=== PATIENT | female | born 1935 | race Caucasian/White ===

== ENCOUNTER → 2023-12-22 15:16 | Outpatient (REF) | payer MEDICARE, SELFPAY | LOC: RAD 15:16 | PROVIDERS: ATTENDING PHYSICIAN Nurse Practitioner Family; FAMILY PHYSICIAN Family Medicine | DX: M54.50 Low back pain, unspecified (principal); M25.562 Pain in left knee | CPT/HCPCS: 72110; 73564 ==

== ENCOUNTER → 2024-01-24 10:14 | Outpatient (REF) | payer MEDICARE, SELFPAY | LOC: RAD 10:14 | PROVIDERS: ATTENDING PHYSICIAN Nurse Practitioner Family; FAMILY PHYSICIAN Family Medicine | DX: M81.0 Age-related osteoporosis without current pathological fracture (principal) | CPT/HCPCS: 77080 ==

== ENCOUNTER 2024-01-27 15:45 | Emergency (ER) | payer MEDICARE, SELFPAY ==
[2024-01-27 15:48] VITALS: BP 169/86
[2024-01-27 15:49] VITALS: BP 169/86
[2024-01-27 15:52] LABS: Glucose - Point of Care 124 mg/dl (70-99)
[2024-01-27 16:00] VITALS: BP 111/78
[2024-01-27 16:01] VITALS: BMI 26.6
[2024-01-27 16:13] LABS: % Basophils 0.7 % (0-2); % Eosinophils 2.5 % (0-6); % Immature Granulocytes 0.5 % (0-0.5); % Lymphocytes 14.1 % (20.5-51.1); % Monocytes 7.6 % (1.7-9.3); % Neutrophils 74.6 % (42.2-75.2); Absolute Basophils 0.1 10^3/uL (0-0.2); Absolute Eosinophils 0.3 10^3/uL (0-0.7); Absolute Immature Granulocytes 0.1 10^3/uL (0-0.05); Absolute Lymphocytes 1.9 10^3/uL (1.2-3.4); Absolute Neutrophils 9.9 10^3/uL (1.4-6.5); Hematocrit 42.1 % (37.0-47.0); Hemoglobin 14.6 g/dL (12.0-16.0); Mean Corp Hgb Conc. 34.7 g/dL (33.0-37.0); Mean Corpuscular Hgb 31.9 pg (27.0-31.0); Mean Corpuscular Volume 91.9 fL (81.0-99.0); Mean Platelet Volume 9.9 fL (7.4-10.4); Nucleated Red Blood Cells % 0 %; Platelet Count 276 10^3/uL (130-400); Red Blood Cell Count 4.58 10^6/uL (4.20-5.40); Red Cell Dist. Width 13.1 % (11.5-14.5); White Blood Cell Count 13.2 10^3/uL (4.8-10.8)
[2024-01-27 16:33] LABS: Blood Urea Nitrogen 29 mg/dl (7-17); Calcium 10.1 mg/dl (8.4-10.2); Carbon Dioxide 26 mmol/L (22-30); Chloride 100 mmol/L (98-107); Estimated Creatinine Clearance -10 ml/min; Glucose 121 mg/dl (70-99); Sodium 140 mmol/L (135-145); eGFR 54.87
[2024-01-27 17:00] VITALS: BP 140/84
[2024-01-27 18:01] VITALS: BP 127/68
--- NOTE | 2024-01-27 18:32 | ED.GENMED ---
History of Present Illness
General
Chief Complaint: Fainting/Passed Out
Time Seen by Provider: 01/27/24 16:09
History of Present Illness
History of Present Illness:
88Y female presenting for evaluation of a syncopal event and resultant head injury sustained today. 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
Arrives via EMS, laceration to the right lateral knee. She does not take any anticoagulants. She denies any neck pain or extremity paresthesias at this time. Ecchymosis and swelling noted to the right lateral eyebrow associated with a laceration
Past History
Past History
ED Past Medical History: None
ED Past Surgical History: None
Review of Systems
Review of Systems
Allergies reviewed?: Yes
All Other Systems: ROS reviewed and negative except as documented in HPI and ROS
Phy Exam
Physical Exam
Physical Exam:
GEN: Well appearing, NAD, WDWN
HEENT: Ecchymosis and swelling to the right forehead/lateral eyebrow associated with a 2 cm linear laceration within the lateral right eyebrow. Oral mucosa moist, no scleral icterus. No midline cervical spine tenderness
Cardiac: Regular rate
Lung: No respiratory distress, no tachypnea
MSK: No gross deformity or injuries
Skin: Good color, no pallor or jaundice, no rashes
Neuro: AO x3, cranial nerves II through XII grossly intact, moves all extremities freely
Psych: Calm, cooperative
Course
Orders/Labs/Results
Orders:
Orders
01/27/24 16:05
Basic Metabolic Panel Urgent
Complete Blood Count/With Diff Urgent
01/27/24 16:07
CT Head W/o Iv Contrast Urgent
Comment:
Reason For Exam: head injury
01/27/24 16:20
CT Facial Bones W/o Iv Contras Urgent
Comment:
Reason For Exam: fall
01/27/24 18:52
Acetaminophen [Tylenol] 650 mg PO NOW STA
Abnormal Lab Results
01/27/24 01/27/24
15:50 16:05
WBC 13.2 H 10^3/uL
(4.8-10.8)
MCH 31.9 H pg
(27.0-31.0)
Abs Immat Gran (auto) 0.1 H 10^3/uL
(0-0.05)
Absolute Neuts (auto) 9.9 H 10^3/uL
(1.4-6.5)
Absolute Monos (auto) 1.0 H 10^3/uL
(0.1-0.6)
Lymphocytes % 14.1 L %
(20.5-51.1)
BUN 29 H mg/dl
(7-17)
Glucose 121 H mg/dl
(70-99)
POC Glucose 124 H mg/dl
(70-99)
01/27/24 16:05
01/27/24 16:05
Vital Signs
Initial and Last Documented VS:
Initial Vital Signs
Pulse Resp BP
94 16 169/86
01/27/24 15:48 01/27/24 15:48 01/27/24 15:48
Last Documented Vital Signs
Temp Pulse Resp BP Pulse Ox
97.4 F 88 17 127/68 96
01/27/24 15:49 01/27/24 18:45 01/27/24 18:45 01/27/24 18:01 01/27/24 18:45
Procedures
Laceration Closure
Right Eye brow:
Status of Wound: clean
Size of Wound in cm: 2
Description of Wound Edges: sharp
Preparation: cleaned with soap & water
Anesthesia: 1% Lidocaine with epi
Wound exploration: explored to base- no FB
Type of Closure: single layer closure
Skin Closure Material: 5-0 nylon
Number of sutures: 3
MDM/Problems Addressed
MDM/Problems Addressed:
Syncope likely vasovagal due to heat/exposure/exertion. CT head and facial bones normal. Suture closure of wound performed
*Critical Care Note
Total Time (30-74mins, 75-104mins- exclusive of procedures): Not Applicable
ED Attending Note
-
Portions of this chart may have been created with voice recognition software.� Occasional wrong word or��sound alike� substitutions may have occurred due to the inherent limitations of voice recognition software.
Discharge Plan
Departure
Patient Disposition: Home (Routine Discharge)
Date of Disposition: 01/27/24
Time of Disposition: 19:14
Patient with high blood pressure during this ER visit?: No
Discharge Problem:
Syncope, Contusion of face
Instructions: Syncope (Fainting) (DC)
Prescriptions:
No Action
cephalexin 250 mg capsule
250 mg PO Q12H Qty: 13 0RF
Referrals:
Carolina Mckoy, [Family Provider] -
Activity Restrictions/Additional Instructions:
Keep wound dry x 24 hours, then wash daily with soap and water
Ice the hematoma to reduce swelling
Suture removal in 5-7 days
Interventions
Interventions:
*Risk Screen - Suicide Last Done: 01/27/24 15:49
*General Assessment Last Done: 01/27/24 15:49
*Neglect/Abuse Screening Last Done: 01/27/24 15:49
*ED COVID-19 Vaccine History Last Done: 01/27/24 16:01
ED- Cardiac Assessment Last Done: 01/27/24 18:04
ED- Neurological Assessment Last Done: 01/27/24 18:04
Discharge Date and Time
Print Language: CZECH
[2024-01-27] MEDS: TYLENOL 650 MG PO (19:14)
== END 2024-01-27 19:34 | disposition home or self-care (01) ==
LOC: EMR 15:45
PROVIDERS: EMERGENCY PHYSICIAN Emergency Medicine; FAMILY PHYSICIAN Family Medicine
DX: S01.111A Laceration without foreign body of right eyelid and periocular area, initial encounter (principal); W19.XXXA Unspecified fall, initial encounter; R55 Syncope and collapse
CPT/HCPCS: 12011; 99284; 70450; 70486; 80048; 82962; 85025; 93005

== ENCOUNTER → 2024-04-02 15:52 | Outpatient (REF) | payer MEDICARE, SELFPAY | LOC: RCS 15:52 | PROVIDERS: ATTENDING PHYSICIAN Nurse Practitioner Family; FAMILY PHYSICIAN Family Medicine | DX: R01.1 Cardiac murmur, unspecified (principal); Z91.81 History of falling; R55 Syncope and collapse | CPT/HCPCS: 93306 ==

== ENCOUNTER → 2024-06-25 06:58 | Outpatient (REF) | payer MEDICARE, SELFPAY ==
[2024-06-25 08:33] LABS: Urine Albumin 1+ (Neg - Trace); Urine Bilirubin Negative (Negative); Urine Character Slightly Cloudy (Clear); Urine Color Yellow; Urine Glucose Negative (Negative); Urine Ketone Negative (Negative); Urine Leukocyte 1+ (Negative); Urine Nitrite Negative (Negative); Urine Occult Blood 2+ (Negative); Urine Specific Gravity 1.015 (<1.030); Urine Urobilinogen Negative (Neg - 1+); Urine pH 6.5 (5.0-9.0)
[2024-06-25 08:36] LABS: % Basophils 0.9 % (0-2); % Eosinophils 3.4 % (0-6); % Immature Granulocytes 0.2 % (0-0.5); % Lymphocytes 28.4 % (20.5-51.1); % Monocytes 9.1 % (1.7-9.3); Absolute Basophils 0.1 10^3/uL (0-0.2); Absolute Eosinophils 0.2 10^3/uL (0-0.7); Absolute Lymphocytes 1.8 10^3/uL (1.2-3.4); Absolute Monocytes 0.6 10^3/uL (0.1-0.6); Absolute Neutrophils 3.8 10^3/uL (1.4-6.5); Hematocrit 40.2 % (37.0-47.0); Hemoglobin 14.2 g/dL (12.0-16.0); Mean Corp Hgb Conc. 35.3 g/dL (33.0-37.0); Mean Corpuscular Hgb 31.7 pg (27.0-31.0); Mean Corpuscular Volume 89.7 fL (81.0-99.0); Mean Platelet Volume 10.3 fL (7.4-10.4); Nucleated Red Blood Cells % 0 %; Platelet Count 253 10^3/uL (130-400); Red Blood Cell Count 4.48 10^6/uL (4.20-5.40); Red Cell Dist. Width 12.7 % (11.5-14.5); White Blood Cell Count 6.5 10^3/uL (4.8-10.8)
[2024-06-25 08:50] LABS: Urine Bacteria Few (Negative); Urine Red Blood Cell 0-2 /HPF (0-2); Urine Squamous Cell >30 /LPF (Few); Urine White Cell 0-2 /HPF (0-5)
[2024-06-25 09:19] LABS: ALT (SGPT) 14 U/L (0-35); AST (SGOT) 22 U/L (14-36); Albumin 4.2 g/dl (3.5-5.0); Alkaline Phosphatase 114 U/L (38-126); Blood Urea Nitrogen 19 mg/dl (7-17); Calcium 9.7 mg/dl (8.4-10.2); Carbon Dioxide 27 mmol/L (22-30); Chloride 104 mmol/L (98-107); Glucose 101 mg/dl (70-99); HDL Cholesterol 57 mg/dl; LDL Cholesterol, Calculated 124 mg/dl; Sodium 141 mmol/L (135-145); Total Bilirubin 0.7 mg/dl (0.2-1.3); Total Cholesterol 213 mg/dl (50-199); Total Protein 7.1 g/dl (6.3-8.2); Triglyceride 160 mg/dl (10-149); Very Low Density Lipoprotein 32 mg/dl (0-30); Vitamin D, 25-OH*** 48.2 ng/mL (30-80); eGFR > 60.00
== END ==
LOC: REG 06:58
PROVIDERS: ATTENDING PHYSICIAN Family Medicine
DX: I10 Essential (primary) hypertension (principal); E55.9 Vitamin D deficiency, unspecified; E78.2 Mixed hyperlipidemia; Z00.00 Encounter for general adult medical examination without abnormal findings
CPT/HCPCS: 36415; 80053; 80061; 81003; 81015; 82306; 85025